=== PATIENT | male | born 1985 | race Caucasian/White ===

== ENCOUNTER 2023-05-04 00:16 | Emergency (ER) | payer SELFPAY ==
[~2023-05-04] VITALS: Ht 188 cm; Wt 97.7 kg
[2023-05-04 00:20] VITALS: BP 139/91; PULSE 65; RESP 18; TEMP 98.2; O2SAT 99
== END 2023-05-04 04:24 | disposition left against medical advice (07) ==
LOC: ER 00:17
DX: K62.89 Other specified diseases of anus and rectum (principal); R10.9 Unspecified abdominal pain; Z53.21 Procedure and treatment not carried out due to patient leaving prior to being seen by health care provider
CPT/HCPCS: 99281